=== PATIENT | female | born 1985 | race Caucasian/White ===

== ENCOUNTER 2020-02-23 11:16 | Outpatient (CLI) | payer BC, SELFPAY ==
[2020-02-23 12:17] LABS: SARS-CoV-2 Ag Negative (Negative)
== END 2020-02-23 11:17 | disposition home or self-care (01) ==
PROVIDERS: PCP Internal Medicine; Visit Provider Internal Medicine
DX: Z20.828 Contact with and (suspected) exposure to other viral communicable diseases (principal)
CPT/HCPCS: 87426

== ENCOUNTER 2020-03-02 13:59 | Outpatient (CLI) | payer BC, SELFPAY ==
[2020-03-03 19:10] LABS: SARS-CoV-2 RNA PCR Negative
== END 2020-03-02 14:00 | disposition home or self-care (01) ==
LOC: CHSLAB 14:01
PROVIDERS: PCP Internal Medicine; Visit Provider Internal Medicine
DX: Z20.828 Contact with and (suspected) exposure to other viral communicable diseases (principal)
CPT/HCPCS: 87635; C9803; U0003

== ENCOUNTER 2020-10-19 10:34 | Outpatient (CLI) | payer BC, SELFPAY ==
--- NOTE | ~2020-10-19 | XR_ITS ---
XR ankle RT min 3V DATE: 10/19/2020 10:51 INDICATION: Right ankle fracture follow-up TECHNIQUE: 4 views COMPARISON: None FINDINGS: Mildly distally displaced cortical avulsion fracture of the inferior tip of the lateral mal leolus. No other fracture or dislocation of the ankle or disruption of the ankle mortise. Mild plantar calcaneal enthesopathy. IMPRESSION: Cortical avulsion fracture of the inferior tip of lateral malleolus Reviewed, dictated and finalized at location A.
== END 2020-10-19 10:35 | disposition home or self-care (01) ==
LOC: CHSIMG 10:37
PROVIDERS: PCP Internal Medicine; Visit Provider Internal Medicine
DX: S82.891D Other fracture of right lower leg, subsequent encounter for closed fracture with routine healing (principal)
CPT/HCPCS: 73610

== ENCOUNTER 2020-11-19 12:25 | Outpatient (CLI) | payer BC, SELFPAY ==
--- NOTE | ~2020-11-19 | XR_ITS ---
XR ankle RT min 3V DATE: 11/19/2020 12:46 INDICATION: Injury 8 weeks ago. Fibular tip cortical avulsion fracture TECHNIQUE: 4 views COMPARISON: 10/19/2020 right ankle FINDINGS: Small cortical avulsion fracture of the tip of the lateral malleolus is again noted. Mild plantar calcaneal enthesopathy. No recent fracture or dislocation of the ankle or disruption of the ankle mortise is noted otherwise. IMPRESSION: No significant new finding since 10/29/2020 Reviewed, dictated and finalized at location A.
== END 2020-11-19 12:26 | disposition home or self-care (01) ==
LOC: CHSIMG 12:27
PROVIDERS: PCP Internal Medicine; Visit Provider Internal Medicine
DX: S82.401D Unspecified fracture of shaft of right fibula, subsequent encounter for closed fracture with routine healing (principal)
CPT/HCPCS: 73610

== ENCOUNTER 2021-05-22 15:59 | Outpatient (CLI) | payer OTHER, SELFPAY ==
--- NOTE | ~2021-05-22 | XR_ITS ---
XR ankle RT min 3V DATE: 05/22/2021 16:32 INDICATION: Right ankle injury today; lateral pain. TECHNIQUE: 4 views COMPARISON: 11/19/2020 right ankle 10/19/2020 right ankle right ankle FINDINGS: No recent fracture or dislocation of the ankle or disruption of the ankle mortise. There is a chronic bony ossicle subjacent to the lateral malleolus. Plantar calcaneal enthesopathy. IMPRESSION: No recent fracture or dislocation Reviewed, dictated and finalized at location A. [employer]
== END 2021-05-22 16:00 | disposition home or self-care (01) ==
LOC: CHSIMG 16:01
PROVIDERS: PCP Internal Medicine; Visit Provider Internal Medicine
DX: S99.911A Unspecified injury of right ankle, initial encounter (principal)
CPT/HCPCS: 73610

== ENCOUNTER 2021-06-18 14:25 | Outpatient (CLI) | payer BC, SELFPAY ==
[2021-06-18 16:26] LABS: Influenza A QL RT-PCR Positive (Negative); Influenza B QL RT-PCR Negative (Negative); SARS-CoV-2 RNA PCR Negative (Negative)
== END 2021-06-18 14:26 | disposition home or self-care (01) ==
LOC: CHSLAB 14:27
PROVIDERS: PCP Internal Medicine; Visit Provider Internal Medicine
DX: R05.9 Cough, unspecified (principal); R50.9 Fever, unspecified; Z20.822 Contact with and (suspected) exposure to COVID-19
CPT/HCPCS: 87502; C9803; U0003; U0005

== ENCOUNTER 2021-08-09 13:48 | Outpatient (CLI) | payer BC, SELFPAY ==
--- NOTE | ~2021-08-09 | CT_ITS ---
EXAMINATION: CT abdomen pelvis w con DATE: 08/09/2021 15:46 INDICATION: Right lower quadrant abdominal pain for one day. Nausea. TECHNIQUE: Computed tomography (CT) of the abdomen and pelvis was performed with 100 CC Omnipaque 350 intravenous contrast. Automated exposure control and iterative reconstruction technique were employe d. Exam dose: 1208.35 mGy-cm total exam DLP. COMPARISON: None. FINDINGS: The lung bases are clear. Normal heart size. No pericardial or pleural effusion. The liver, gallbladder, spleen, pancreas, and adrenal glands and kidneys are unremarkable. No bile du ct or pancreatic duct dilatation. No urinary tract calculus or hydroureteronephrosis. The urinary bladder, uterus and adnexal areas are unremarkable. There is appendiceal dilatation, measuring up to 9 mm, with mild [place]ford-appendiceal fat stranding. Occasional nonenlarged nearby lymph nodes, likely reactive. No bowel obstruction, bowel wall thickening or pneumatosis or intraperitoneal free air is noted other noe. Transitional first sacral vertebra. No suspicious osteolytic or osteoblastic lesions. IMPRESSION: Acute appendicitis Dr. Olmos telephoned Dr. Mer[employer] Planning Manager Mariangel with the results of the examination on 022 at 1356 hours.. Reviewed, dictated and finalized at Location [facility]. Reviewed, dictated and finalized at location A. IMPRESSION: Acute appendicitis Dr. Olmos telephoned Dr. Merlos's [employer] Planning Manager Mariangel with the results of the examination on 08/09/2021 at 1356 hours..
[2021-08-09 14:01] LABS: Basophils Absolute Auto 0.04 K/mm3 (0.00-0.10); Basophils Percent Auto 0.3 % (0.0-1.0); Eosinophils Absolute Auto 0.17 K/mm3 (0.02-0.50); Eosinophils Percent Auto 1.4 % (1.0-6.0); Hematocrit 38.6 % (35.0-49.0); Hemoglobin 12.3 g/dL (12.0-15.0); Immature Granulocyte Absolute 0.04 K/mm3 (0.00-0.00); Immature Granulocyte Percent A 0.3 % (0.0-0.0); Lymphocytes Absolute Auto 3.05 K/mm3 (1.10-4.50); Lymphocytes Percent Auto 24.7 % (18.0-42.0); Mean Corpuscular HGB Conc 31.9 g/dL (32.0-36.0); Mean Corpuscular Volume 87.7 fL (78.0-102.0); Mean Platelet Volume 10.2 fl (9.2-11.8); Monocytes Absolute Auto 0.79 K/mm3 (0.10-0.90); Monocytes Percent Auto 6.4 % (2.0-11.0); Neutrophils Absolute Auto 8.3 K/mm3 (1.7-7.2); Neutrophils Percent Auto 66.9 % (50.0-70.0); Platelet Count Result 352 K/mm3 (150-420); Red Cell Distribution Width 14.5 % (11.6-14.4); White Blood Count 12.3 K/mm3 (4.8-10.8)
[2021-08-09 14:13] LABS: Add Urine Microscopic? YES; Appearance Urine Clear (Clear); Bilirubin Urine Negative (Negative); Blood Urine 3+ (Negative); Color Urine Light Yellow (Yellow); Glucose Urine UA Negative (Negative); Ketones Urine Trace (Negative); Leukocyte Esterase Ur 1+ (Negative); Nitrate Urine Negative (Negative); Protein Urine Trace (Negative); Urobilinogen Urine 0.2 mg/dL (0.2-1.0)
[2021-08-09 14:18] LABS: Bacteria Urine Trace /hpf; RBC Urine 51-75 /hpf (0-2); Squamous Epithelial Cell Urine Rare /hpf (Few)
[2021-08-09 14:24] LABS: Alanine Aminotransferase 25 U/L (14-59); Albumin Level 3.5 g/dL (3.4-5.0); Alkaline Phosphatase 64 U/L (46-116); Amylase 56 U/L (25-115); Aspartate Amino Transferase 21 U/L (15-37); Bilirubin,Total 0.4 mg/dL (0.00-1.00); Blood Urea Nitrogen 11 mg/dL (7-18); Calcium 9.1 mg/dL (8.5-10.1); Carbon Dioxide 28 mmol/L (21-32); Estimated Glomerular Filt Rate > 60; Glucose 99 mg/dL (70-99); Lipase 84 U/L (73-393); Total Protein 7.6 g/dL (6.4-8.2)
[2021-08-09 14:33] LABS: Anion Gap 6 mmol/L (8-16); Chloride 105 mmol/L (98-108); Osmolality Calculated 287 mOsm/kg (285-295); Potassium 3.8 mmol/L (3.5-5.1); Sodium 139 mmol/L (136-145)
== END 2021-08-09 13:49 | disposition home or self-care (01) ==
PROVIDERS: PCP Internal Medicine; Visit Provider Nurse Practitioner Family
DX: R10.31 Right lower quadrant pain (principal)
CPT/HCPCS: 36415; 74177; 80053; 81001; 82150; 83690; 85025; 87086; 87088; Q9967

== ENCOUNTER 2021-08-09 16:59 | Day surgery (SDC) | payer BC, SELFPAY ==
[2021-08-09] VITALS (8 sets, daily range): BP systolic 106–143; BP diastolic 52–84; PULSE 65–82; RESP 11–16; TEMP 36.3–37.3; O2SAT 96–100
[2021-08-09 17:34] LABS: Basophils Percent Auto 0.4 % (0.2-1.2); Eosinophils Absolute Auto 0.2 K/mm3 (0-0.3); Eosinophils Percent Auto 1.5 % (0-4.4); Hematocrit 37.6 % (37.0-47.0); Immature Granulocyte Absolute 0.03 K/mm3 (0.00-0.031); Immature Granulocyte Percent A 0.3 % (0-0.5); Lymphocytes Absolute Auto 3.43 K/mm3 (0.9-3.2); Lymphocytes Percent Auto 30.2 % (18.3-44.2); Mean Corpuscular HGB Conc 31.9 g/dl (32-36); Mean Corpuscular Hemoglobin 27.8 pg (26-34); Mean Platelet Volume 9.9 fl (7.4-10.4); Monocytes Absolute Auto 0.7 K/mm3 (0.1-0.6); Monocytes Percent Auto 6.4 % (2.6-8.5); Neutrophils Percent Auto 61.2 % (45.5-73.1); Platelet Count Result 338 k/mm3 (150-375); Red Blood Count 4.32 M/mm3 (4.2-5.4); Red Cell Distribution Width 14.6 % (11.5-14.5); White Blood Count 11.4 K/mm3 (4.5-10.0)
[2021-08-09 17:44] LABS: Alanine Aminotransferase 21 U/L (4-35); Albumin Level 4.3 g/dL (3.5-5.1); Alkaline Phosphatase 71 U/L (38-126); Anion Gap 8 mmol/L (8-16); Aspartate Amino Transferase 33 U/L (14-36); Bilirubin,Total 0.2 mg/dL (0.2-1.3); Blood Urea Nitrogen 14 mg/dL (7-17); Carbon Dioxide 24 mmol/L (22-30); Chloride 105 mmol/L (98-107); Estimated CRCL calculation 122 ml/min; Estimated Glomerular Filt Rate > 60; Glucose 91 mg/dL (65-110); Potassium 3.9 mmol/L (3.4-5.0); Sodium 137 mmol/L (137-145)
[2021-08-09] MEDS: SODIUM CHLORIDE 0.9% IV 1,000 ML 999 ML IV CONT (18:00)
--- NOTE | 2021-08-09 18:15 | ED.ABDPAIN ---
HPI - Abdominal Pain General Chief Complaint: Abdominal Pain Stated Complaint: appendicitis Time Seen by Provider: 08/09/21 17:05 Source: patient Mode of arrival: ambulatory History of Present Illness HPI narrative: 35-year-old female presents today with history of right-sided lower abdominal pain that started last night. Patient said she started her period yesterday and just assume that that is what it was from. Pain continued today so she followed up with her primary who did labs and a CT. Labs showed an elevated white count of 12.[address] showed acute appendicitis. Patient was instructed to come to the ER. Related Data Allergies Allergy/AdvReac Type Severity Reaction Status Date / Time Sulfa (Sulfonamide Allergy Unknown Verified 04/17/17 21:20 Antibiotics) Review of Systems Review of Systems: CONSTITUTIONAL: Denies fever, chills, or sweats. EYES: Denies visual changes, redness, or discharge. ENT: Denies rhinorrhea, congestion, sore throat, or otalgia. CARDIOVASCULAR: Denies chest pain, palpitations, or edema. RESPIRATORY: Denies cough or dyspnea. GASTROINTESTINAL: Right lower quadrant abdominal pain. Denies nausea, vomiting, or diarrhea. GENITOURINARY: Denies dysuria or hematuria. SKIN: Denies rash or itching. MUSCULOSKELETAL: Denies back pain, joint pain, or myalgia. NEUROLOGIC: Denies headache, numbness, dizziness, or weakness. PSYCHIATRIC: Denies anxiety or depression. [facility] Past Medical History Medical History (Updated 08/09/21 @ 18:22 by Guadalupe Camarena APRN) GERD (gastroesophageal reflux disease) Migraines Exam Narrative: GENERAL: Well-appearing, well-nourished, and in no acute distress. HEAD: Normocephalic, atraumatic. EYES: PERRLA and EOMI. ENT: Nares clear, no rhinorrhea or epistaxis. Mucous membranes moist. Oropharynx without tonsillar hypertrophy exudate or other lesions. Bilateral TMs pearly rocha nonbulging NECK: Supple. No adenopathy or masses. No carotid bruits or JVD CHEST: Clear to auscultation. No respiratory distress. No wheezes rales or rhonchi HEART: Regular rate and rhythm. No murmur heard. Normal peripheral pulses. ABDOMEN: Soft, nondistended, normal active bowel sounds. Right lower quadrant abdominal tenderness. EXTREMITIES: Normal range of motion. No edema. SKIN: Warm, dry, no rash. NEURO: No focal deficits. Alert and oriented x3. PSYCH: Normal mood and affect. Course Course Emergency Course: Labs and CT reviewed. General surgeon called. Dr. Tracey to take patient to the OR today. Patient aware of plan of care. Consultations Consultation #1: Dr. Tracey consulted. Awaiting return call for disposition to either OR or admission. Date: 08/09/21 Time: 18:00 Vital Signs Vital signs: Vital Signs Temperature 37.3 C 08/09/21 17:04 Pulse Rate 82 08/09/21 17:04 Respiratory Rate 13 08/09/21 17:04 Blood Pressure 143/84 H 08/09/21 17:04 Pulse Oximetry 96 08/09/21 17:04 Temperature 37.3 C 08/09/21 17:04 Pulse Rate 82 08/09/21 17:04 Respiratory Rate 13 08/09/21 17:04 Blood Pressure 143/84 H 08/09/21 17:04 Pulse Oximetry 96 08/09/21 17:04 MDM - Abdominal Pain MDM Narrative Medical decision making narrative: HPI as noted. Patient arrived to ER with labs and CT already done. CT showed appendicitis. General surgery consulted plan for appendectomy. Differential Diagnosis Differential diagnosis: Likely abdominal pain and acute appendicitis Lab Data Result diagrams: 08/09/21 17:29 08/09/21 17:29 Labs: Lab Results 08/09/21 08/09/21 Range/Units 17:29 17:29 WBC 11.4 H (4.5-10.0) K/mm3 RBC 4.32 (4.2-5.4) M/mm3 Hgb 12.0 (12.0-15.0) g/dL Hct 37.6 (37.0-47.0) % MCV 87.0 (80-100) fl MCH 27.8 (26-34) pg MCHC 31.9 L (32-36) g/dl RDW 14.6 H (11.5-14.5) % Plt Count 338 (150-375) k/mm3 MPV 9.9 (7.4-10.4) fl Immature Gran % (Auto) 0.3 (0-0.5) % Neut % (Auto) 61.2 (45.5-73.1)
--- NOTE | 2021-08-09 18:23 | PM.IMHP ---
H&P: HPI History of Present Illness Date/Time: 08/09/21 18:23 Pt is a 35 y/o F presenting to the ED c/o severe RLQ abd pain since last night. Pt reports pain is constant and sharp. Pt reports associated nausea, poor appetite. Pt was seen by PCP earlier today and workup including CT c/w acute appendicitis. Chief Complaint: acute appendicitis Review of Systems Constitutional: Constitutional: Denies anorexia, Denies chills, Denies fatigue, Denies fever(s), Denies lethargy, Denies malaise, Reports poor appetite, Denies weakness, Denies weight gain and Denies weight loss Eyes: Eyes: Reports no additional eye complaints ENT: Reports system reviewed and no additional complaints, except as documented Cardiovascular: Cardiovascular: Reports no additional cardiovascular complaints Respiratory: Respiratory: Reports no additional respiratory complaints Gastrointestinal: Gastrointestinal: Reports as per HPI, Reports abdominal pain, Denies belching, Denies bloating, Reports GI cramping, Reports nausea and Denies vomiting Genitourinary: Genitourinary: Reports no additional female genitourinary complaints Musculoskeletal: Musculoskeletal: Reports no additional musculoskeletal complaints Integumentary/Breasts: Skin/Breast: Reports system reviewed and no additional complaints, except as docu Neurologic: Reports system reviewed and no additional complaints, except as documented Psychiatric: Psychiatric: Reports no additional psychiatric complaints Endocrine: Endocrine: Reports no additional endocrine complaints Hematologic/Lymphatic: Hematologic/Lymphatic: Reports no additional hematologic/lymphatic complaints Allergic/Immunologic: Allergic/Immunologic: Reports no additional allergic/immunologic complaints PMFSH Past Medical History Medical History GERD (gastroesophageal reflux disease) Migraines Surgical History Surgical History (Updated 08/09/21 @ 18:28 by Ye New MD) H/O sinus surgery Comments Surgical history - sinus surgery FH - no CRC, IBD SH - no tobacco (quit 1 yr ago), ETOH Meds Home Medications and Allergies Allergies Allergy/AdvReac Type Severity Reaction Status Date / Time Sulfa (Sulfonamide Allergy Unknown Verified 04/17/17 21:20 Antibiotics) Vital Signs Vital Signs - 24 hr 08/09/21 17:04 Temperature 37.3 C Pulse Rate 82 Respiratory Rate 13 Blood Pressure 143/84 H Pulse Oximetry 96 Exam Const: General: cooperative, comfortable and no acute distress Nutritional Appearance: obese Orientation/consciousness: patient oriented x3 Limitations: no limitations HENMT: Head: normal to inspection, normocephalic and atraumatic Ears: hearing grossly normal bilaterally General nose exam: Normal external nose present Face and sinus: normal facial exam Mouth: Yes Normal oral and palatal mucosa present and Yes moist mucous membranes Throat: posterior oropharynx normal Eyes: General: appearance normal, both eyes and all related structures Pupils: Equal, round and reactive pupils present EOM: EOMs intact bilaterally Neck: Neck: normal visual inspection, full ROM and no lymphadenopathy Chest: Chest palpation & inspection: normal inspection of the chest Resp: Effort & Inspection: normal respiratory effort Auscultation: clear to auscultation bilaterally Cardio: Jugular venous distension: no JVD Rate: regular rate Rhythm: regular rhythm GI: Inspection: normal to inspection GI Palp: Yes abdominal tenderness, Yes Soft to palpation, Yes Tenderness to palpation present (GI), Yes Guarding due to palpation present (GI), No Rigid due to palpation and No Hernia present Skin: General skin exam: normal color and no rashes or lesions noted Neuro: General: patient oriented x3 and CN's II-XI intact bilaterally Extrem: General: normal to inspection and full ROM Psych: Appearance: grossly normal H&P: Results Labs Labs: Short CBC 07/13
--- NOTE | 2021-08-09 18:27 | WPDANESEPPF ---
Anes - Initial Pre Proc Eval Procedure: Operation Date: 08/09/21 18:45 Proposed Procedures p Laparoscopic Appendectomy - Estrella Tracey MD Date/Time: 08/09/21 18:27 Surgeon: Estrella Tracey MD Pre Op Diagnosis: appendicitis Patient Data Age: 35 Gender: F Height: 1.7 m Weight: 110 kg Last Vital Signs Temp 37.3 C 08/09/21 17:04 Pulse 82 08/09/21 17:04 Resp 13 08/09/21 17:04 BP 143/84 H 08/09/21 17:04 Pulse Ox 96 08/09/21 17:04 Allergies Allergy/AdvReac Type Severity Reaction Status Date / Time Sulfa (Sulfonamide Allergy Unknown Verified 04/17/17 21:20 Antibiotics) Laboratory Tests 08/09/21 08/09/21 17:29 17:29 WBC 11.4 K/mm3 H K/mm3 (4.5-10.0) RBC 4.32 M/mm3 M/mm3 (4.2-5.4) Hgb 12.0 g/dL g/dL (12.0-15.0) Hct 37.6 % % (37.0-47.0) MCV 87.0 fl fl (80-100) MCH 27.8 pg pg (26-34) MCHC 31.9 g/dl L g/dl (32-36) RDW 14.6 % H % (11.5-14.5) Plt Count 338 k/mm3 k/mm3 (150-375) MPV 9.9 fl fl (7.4-10.4) Immature Gran % (Auto) 0.3 % % (0-0.5) Neut % (Auto) 61.2 % % (45.5-73.1) Lymph % (Auto) 30.2 % % (18.3-44.2) [place] % (Auto) 6.4 % % (2.6-8.5) Eos % (Auto) 1.5 % % (0-4.4) Baso % (Auto) 0.4 % % (0.2-1.2) Lymph # (Auto) 3.43 K/mm3 H K/mm3 (0.9-3.2) [place] # (Auto) 0.7 K/mm3 H K/mm3 (0.1-0.6) Eos # (Auto) 0.2 K/mm3 K/mm3 (0-0.3) Baso # (Auto) 0.0 K/mm3 K/mm3 (0.0-0.1) Abs Immat Gran (auto) 0.03 K/mm3 K/mm3 (0.00-0.031) Absolute Neuts (auto) 7.0 K/mm3 H K/mm3 (1.3-6.7) Absolute Nucleated RBC 0.0 K/mm3 K/mm3 (0.0-0.012) Nucleated RBC % 0.0 % % (0.0-0.2) Sodium 137 mmol/L mmol/L (137-145) Potassium 3.9 mmol/L mmol/L (3.4-5.0) Chloride 105 mmol/L mmol/L (98-107) Carbon Dioxide 24 mmol/L mmol/L (22-30) Anion Gap 8 mmol/L mmol/L (8-16) BUN 14 mg/dL mg/dL (7-17) Creatinine 0.70 mg/dL mg/dL (0.7-1.0) Estim Creat Clear Calc 122 ml/min ml/min Estimated GFR > 60 (59 - ) Glucose 91 mg/dL mg/dL (65-110) Calcium 9.0 mg/dL mg/dL (8.4-10.2) Total Bilirubin 0.2 mg/dL mg/dL (0.2-1.3) AST 33 U/L U/L (14-36) ALT 21 U/L U/L (4-35) Alkaline Phosphatase 71 U/L U/L (38-126) Total Protein 7.0 g/dL g/dL (6.3-8.2) Albumin 4.3 g/dL g/dL (3.5-5.1) Patient hx anesthesia problems: none Family hx anesthesia problems: none Results Review: All pre-operative results and documents have been reviewed as part of the pre-operative evaluation. [facility] Past Medical History Medical History (Updated 08/09/21 @ 18:30 by Ye New MD) GERD (gastroesophageal reflux disease) Migraines Obesity Snores Surgical History Surgical History (Updated 08/09/21 @ 18:28 by Ye New MD) H/O sinus surgery Anes - Eval Final PreProcedure Day of Procedure 08/09/21 18:27 Patient weight: obese Heart: regular rate and rhythm Lungs: clear to auscultation Airway: Mallampati scale class II Neurological: alert and oriented Last oral intake: >/= 8 hours ASA classification: III Emergent: no Anesthetic plan: proceed Anesthesia type and monitoring: general ETT and standard monitoring Results Review: All pre-operative results and documents have been reviewed as part of the pre-operative evaluation. Informed Consent: The patient's anesthetic plan and its attendant risks and benefits were discussed with the patient/family/POA. Questions were solicited and answers provided to the satisfaction of the patient/family/POA.
--- NOTE | 2021-08-09 18:29 | WPDHPUPDATE1 ---
History and Physical Update Update Date/Time: 08/09/21 18:29 History and Physical has been reviewed, including an updated exam of the patient. There are NO changes in the patient's condition. Risks, benefits, and alternatives have been discussed and questions answered. Patient agrees to proceed with procedure.
[2021-08-09] MEDS: LACTATED RINGERS 1,000 ML 30 ML IV CONT ×2 (18:40→19:34)
--- NOTE | 2021-08-09 19:11 | W.PM.PROC2 ---
Procedure Note - Detailed Date of Procedure 08/09/21 Pre-op Diagnosis appendicitis Post-op Diagnosis Same Procedure Performed laparoscopic appendectomy Surgeon Estrella Tracey MD Anesthesia General Findings acute appendicitis no evidence of perforation Description of Procedure The patient was taken to the operating room and placed in the supine position. After adequate induction of general anesthesia, the patient was prepped and draped in the normal sterile fashion. A time-out was then done to verify the patient's identity, as well as the procedure being performed. I began by making a 5 mm incision in the infraumbilical region, through this a Veress needle was placed in the peritoneal cavity. CO2 gas was then insufflated and after adequate pneumoperitoneum was achieved the Veress needle was removed. Then placed a 5 mm Optiview trocar under direct visualization into the peritoneal cavity. I then insufflated through this trocar site and the endoscope was placed into the trocar. Under direct visualization, placed 2 further 5 mm suprapubic port as well as an additional 12 mm port in the left lower abdomen. At this point identified the cecum, I retracted the cecum both medially and superiorly allowing me to expose the appendix. The appendix was noted to be dilated and inflamed. The appendix was noted to be adherent to the right lateral sidewall as well as the ileum. I was able to bluntly dissect the appendix from these adhesions. I then was able to locate the base of the appendix with the cecum. I created a window with the [place] dissector between the appendix itself and the mesoappendix. I then transected the mesoappendix with a white vascular staple load. The Endo-JULIAN was then reloaded with a blue staple load and I transected the base of the appendix. Once the specimen was completely detached, an endo-pouch was placed into the 12 mm port site and the specimen was removed through the endo-pouch. The appendiceal specimen will be sent to pathology for further review. I then copiously irrigated the right lower quadrant. Hemostasis was noted at both staple lines no other pathology was seen in this area. I then moved the camera to the suprapubic port to check our its port of entry. No iatrogenic injury or other pathology was noted in the upper abdomen. I then closed the 12 mm port site with a [place] code and 0 Vicryl suture under direct visualization. At this point, the abdomen was desufflated and all ports were removed. All port sites were closed with 4 Monocryl subcuticular suture. Dermabond was placed on all wounds. The patient tolerated the procedure well and was extubated in the operating room postop. He will be sent to the recovery room in stable condition. Estimated Blood Loss 5 Drains No Packing No Pathology Yes Complications No immediate complications Condition Stable Disposition PACU
[2021-08-09] MEDS: ONDANSETRON INJ 4 MG/2 ML VIAL IV PUSH (19:24)
[2021-08-09] MEDS: fentaNYL CITRATE INJ (*CRX) 100 MCG/2 ML VIAL 25 MCG IV PUSH ×4 (19:33→19:49)
[2021-08-09] MEDS: SCOPOLAMINE 1.5 MG PATCH TRANSDERM (19:42)
== END 2021-08-09 20:37 | disposition home or self-care (01) ==
LOC: ANHED 18:00 → ANHSURGERY 18:18
PROVIDERS: Emergency Provider Nurse Practitioner Family; PCP Internal Medicine; Visit Provider Surgery
PROC: 0DTJ4ZZ Resection of Appendix, Percutaneous Endoscopic Approach (ICD-10-PCS; CPT 44970; principal; 2021-08-09 18:45)
DX: K35.30 Acute appendicitis with localized peritonitis, without perforation or gangrene (principal); E66.9 Obesity, unspecified; Z68.38 Body mass index [BMI] 38.0-38.9, adult
CPT/HCPCS: 44970; 36415; 80053; 81025; 85025; 88304; 96365; 99285; A9270; J0330; J2001; J2250; J2405; J2543; J2704; J3010; J7030; J7120

== ENCOUNTER 2024-11-24 15:43 | Outpatient (CLI) | payer OTHER, SELFPAY ==
--- NOTE | ~2024-11-24 | MR_ITS ---
EXAMINATION: MR brain/brain stem wo con DATE: 11/24/2024 21:22 INDICATION: Chronic migraines without aura TECHNIQUE: Magnetic resonance imaging (MRI) of the brain and brainstem was performed without intraven ous contrast. Sequences included sagittal and axial T1-weighted SE, axial diffusion-weighted FS SE, a xial T2*-weighted GRE, axial T2-weighted FLAIR, and axial T2-weighted FSE. Apparent diffusion coeffic ient (ADC) maps were created. COMPARISON: None. FINDINGS: There are no areas of restricted diffusion to suggest acute infarction. No intracranial hemorrhage or abnormal intracranial mass lesion. There are no intraparenchymal signal abnormalities seen on the ot her pulse sequences. The ventricles are symmetric and normal in size. There are no abnormal extra-axi al fluid collections. Flow voids are seen in the cerebral arteries on the T2-weighted sequences consi stent with their expected patency. Mild mucosal thickening in the bilateral maxillary and ethmoid sin uses. Visualized orbits and soft tissues are unremarkable. IMPRESSION: 1. Normal brain. No acute intracranial process. Reviewed, dictated and finalized at location A.
== END 2024-11-24 15:44 | disposition home or self-care (01) ==
LOC: CHSIMG 15:50
PROVIDERS: PCP Internal Medicine
DX: G43.711 Chronic migraine without aura, intractable, with status migrainosus (principal)
CPT/HCPCS: 70551